=== PATIENT | male | born 1990 | race Caucasian/White ===

== ENCOUNTER 2019-09-04 07:52 | Inpatient (IN) ==
[2019-09-04] MEDS ORDERED: NS 1,000 ML IV ONE ×3 (08:03→10:35)
[2019-09-04] MEDS ORDERED: BOOSTRIX VACCINE IM ONE (08:03)
[2019-09-04] MEDS ORDERED: KEFZOL 2 GM/D5W 2 GM/50 ML IVPB IV ONE (08:03)
[2019-09-04] MEDS ORDERED: NS 1,000 ML ONE (08:11)
[2019-09-04 08:21] LABS: BASO# 0.03 X1000 (0.0-0.2); BASO% 0.1 % (0.0-0.8); EOS# 0.09 X1000 (0.0-0.7); EOS% 0.3 % (0.0-10.0); HEMATOCRIT 42.6 % (42.0-52.0); HEMOGLOBIN 14.5 g/dL (14.0-18.0); IMM GRAN# 0.24 X1000 (0.0-0.04); IMM GRAN% 0.8 % (0.0-0.5); LYMPH# 4.42 X1000 (1.2-3.4); MCH 31.9 PG (27-31); MCV 93.6 FL (81-99); MONO# 1.78 X1000 (0.11-0.59); MPV 9.3 FL (7.4-10.4); NEUT% 77.8 % (42.2-75.2); PLT 304 X1000 (130-400); RBC 4.55 XMIL (4.7-6.1); RDW 12.3 % (11.5-14.5); WBC 29.56 X1000 (4.8-10.8)
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
[2019-09-04 08:41] LABS: AGAP 20; ALB/GLOB RATIO 1.7; ALBUMIN 4.3 g/dL (3.5-5.0); ALKALINE PHOSPHATASE 78 U/L (32-122); BUN 9 mg/dL (8-22); CALCIUM 8.1 mg/dL (8.8-10.2); CHLORIDE 111 mmol/L (98-107); COSMO 296; CREATININE 1.8 mg/dL (0.7-1.2); GLUCOSE 152 mg/dL (70-104); GOT 41 U/L (10-34); GPT 40 U/L (10-44); POTASSIUM 3.9 mmol/L (3.5-5.1); SODIUM 148 mmol/L (136-145); TCO2 17 mmol/L (25-35); TOTAL BILIRUBIN 0.15 mg/dL (0.20-1.00); TOTAL PROTEIN 6.8 g/dL (6.3-8.3)
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
[2019-09-04 09:27] LABS: FREE T4 0.98 ng/dL (0.93-1.70); TSH 2.06 uIUmL (0.27-4.20)
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
[2019-09-04] MEDS ORDERED: MORPHINE IV ONE (10:14)
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
[2019-09-04 12:06] LABS: HEMATOCRIT 32.1 % (42.0-52.0); HEMOGLOBIN 10.7 g/dL (14.0-18.0)
--- NOTE | 2019-09-04 12:08 | ED EKG INTERP ---
This chart was entered by Elaine Sutton Scribe, acting as scribe for Vivek Rodriguez MD. EKG Interpretation - EKG Time of EKG reading by physician:: 11:50 EKG Read and Signed by:: Vivek Rodriguez EKG Interpretation (*Must complete 3 of following elements*): Normal Rate: 97 Rhythm: nsr [place]: normal QRS: normal OK Interval: normal ST Wave: normal Attestation - Physician/ DANE Attestation Patient care was provided by Advanced Practice Provider:: No The physician spent face to face time with patient:: Yes Advanced Practice Provider documentation review:: Supervising physician onsite and consulted in the evaluation and care of this patient. The physician did have a face to face encounter with the patient. This chart was documented by the indicated scribe, (Elaine Sutton Scribe) and accurately reflects the services I performed and decisions made by me, Vivek Rodriguez MD, as attested by the provider's signature.
[2019-09-04] MEDS ORDERED: ZOFRAN IV PRN (13:26)
[2019-09-04] MEDS ORDERED: ATIVAN IV PRN (13:26)
[2019-09-04] MEDS ORDERED: SODIUM CHLORIDE 0.9% INJ SCH (13:26)
[2019-09-04] MEDS ORDERED: BENTYL PO PRN (13:26)
[2019-09-04 13:50] LABS: ALLEN TEST YES; BE -7.3 mmoll (-3.0-3.0); BLOOD TYPE ARTERIAL; HCO3-(ACT) 19.2 mmoll (20.0-26.0); METHB 0.8 % (0.0-1.5); O2(CT) 15.1 mL/dL (15.0-23.0); O2HB 96.1 % (95.0-99.0); PCO2(98.6) 26 mmHg (35-45); PO2(98.6) 97 mmHg (60-100); SAMPLE BLOOD; SAO2 98.4 % (95.0-100.0); THB 11.1 g/dL (11.5-17.4)
[2019-09-04 13:51] LABS: MODALITY CANNULA
[2019-09-04] MEDS: PROTONIX IV SCH (13:53)
[2019-09-04] MEDS: NS 1,000 ML IV SCH ×2 (13:53→20:17)
[2019-09-04 13:58] LABS: HEMOGLOBIN A1C 4.6 % (4.8-6.0)
[2019-09-04] MEDS ORDERED: M.V.I.-12 10 ML, FOLIC ACID 1 MG, MAGNESIUM SULFATE 1 GM, THIAMINE 100 MG in NS 1,000 ML IV ONE (14:00)
--- NOTE | 2019-09-04 14:08 | EKG Report ---
Test Performed on : 09/04/2019 11:50:17 AM Test Reason : ED. No order in [place] Blood Pressure : / mmHG Vent. Rate : 097 BPM Atrial Rate : 097 BPM P-R Int : 150 ms QRS Dur : 074 ms QT Int : 328 ms P-R-T Axes : 049 051 034 degrees QTc Int : 416 ms Normal sinus rhythm. Normal ECG When compared with ECG of 04-SEP-2019 08:02, (Unconfirmed) No significant change was found Unconfirmed Result
[2019-09-04] MEDS ORDERED: OFIRMEV 1000 MG/ISOTONIC SOLN 1,000 MG/100 ML BOTTLE IV PRN (14:11)
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
[2019-09-04] MEDS: LIBRIUM PO SCH ×2 (15:30→20:13)
[2019-09-04 17:23] LABS: HEMATOCRIT 33.5 % (42.0-52.0); HEMOGLOBIN 11.1 g/dL (14.0-18.0)
[2019-09-04 17:24] LABS: UR AMPHETAMINES QUAL NONE DETECTED (NONE DETECT); UR BARBITUATES QUAL NONE DETECTED (NONE DETECT); UR BENZODIAZEPIN QUAL NONE DETECTED (NONE DETECT); UR CANNABINOIDS QUAL NONE DETECTED (NONE DETECT); UR COCAINE QUAL NONE DETECTED (NONE DETECT); UR METHADONE QUAL NONE DETECTED (NONE DETECT); UR OPIATES QUAL PRESUMPTIVE POSITIVE (NONE DETECT); UR OXYCODONE QUAL NONE DETECTED (NONE DETECT); UR PCP QUAL NONE DETECTED (NONE DETECT)
[2019-09-04 17:37] LABS: URINE SOURCE CLEAN CATCH
[2019-09-04 17:42] LABS: BILIRUBIN URINE NEGATIVE (NEGATIVE); BLOOD URINE SMALL (NEGATIVE); CLARITY CLEAR (CLEAR); COLOR YELLOW; GLUCOSE URINE NEGATIVE (NEGATIVE); KETONE URINE NEGATIVE (NEGATIVE); LEUKOCYTES URINE NEGATIVE (NEGATIVE); NITRITE URINE NEGATIVE (NEGATIVE); PROTEIN URINE NEGATIVE (NEGATIVE); SP GRAVITY URINE 1.015; UROBILINOGEN URINE 0.2 EU/dL (0.2-1.0)
[2019-09-04 18:06] LABS: URINE BACTERIA NEGATIVE /HFP; URINE CAST GRANULAR PRESENT /LPF; URINE EPITHELIAL CELLS <10 /HPF (<10); URINE RBC <10 /HPF (<10); URINE WBC <10 /HPF (<10); URINE YEAST NONE SEEN /HPF
[2019-09-04] MEDS: MORPHINE IV PRN (20:13)
[2019-09-04 23:45] LABS: HEMATOCRIT 27.9 % (42.0-52.0); HEMOGLOBIN 9.5 g/dL (14.0-18.0)
[2019-09-05 00:57] LABS: BASO# 0.01 X1000 (0.0-0.2); BASO% 0.1 % (0.0-0.8); EOS# 0.03 X1000 (0.0-0.7); EOS% 0.3 % (0.0-10.0); HEMATOCRIT 28.5 % (42.0-52.0); HEMOGLOBIN 9.7 g/dL (14.0-18.0); IMM GRAN# 0.03 X1000 (0.0-0.04); IMM GRAN% 0.3 % (0.0-0.5); LYMPH# 2.65 X1000 (1.2-3.4); LYMPH% 28.1 % (20.5-51.1); MCH 31.8 PG (27-31); MCV 93.4 FL (81-99); MONO% 12.7 % (1.7-9.3); MPV 10.1 FL (7.4-10.4); NEUT# 5.52 X1000 (1.4-6.5); NEUT% 58.5 % (42.2-75.2); PLT 190 X1000 (130-400); RBC 3.05 XMIL (4.7-6.1); RDW 11.7 % (11.5-14.5); WBC 9.44 X1000 (4.8-10.8)
[2019-09-05 01:06] LABS: INR 1.04; PROTIME 13.7 Seconds (11.0-16.0)
[2019-09-05 01:17] LABS: AGAP 13; ALB/GLOB RATIO 2.2; ALBUMIN 3.9 g/dL (3.5-5.0); ALKALINE PHOSPHATASE 58 U/L (32-122); BUN 10 mg/dL (8-22); CALCIUM 7.7 mg/dL (8.8-10.2); CHLORIDE 106 mmol/L (98-107); COSMO 273; CREATININE 0.9 mg/dL (0.7-1.2); ESTIMATED GFR > 60; GLUCOSE 103 mg/dL (70-104); GOT 53 U/L (10-34); GPT 34 U/L (10-44); POTASSIUM 4.5 mmol/L (3.5-5.1); SODIUM 137 mmol/L (136-145); TCO2 18 mmol/L (25-35); TOTAL BILIRUBIN 0.43 mg/dL (0.20-1.00); TOTAL PROTEIN 5.7 g/dL (6.3-8.3)
[2019-09-05] MEDS: MORPHINE IV PRN ×3 (01:27→20:18)
[2019-09-05] MEDS: PROTONIX IV SCH ×2 (01:27→14:04)
[2019-09-05] MEDS: LIBRIUM PO SCH ×4 (02:12→22:46)
[2019-09-05] MEDS: NS 1,000 ML IV SCH ×3 (05:48→22:46)
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
[2019-09-05 08:43] LABS: EOS# 0.04 X1000 (0.0-0.7); EOS% 0.5 % (0.0-10.0); HEMATOCRIT 26.2 % (42.0-52.0); HEMOGLOBIN 8.6 g/dL (14.0-18.0); LYMPH% 32.3 % (20.5-51.1); MCH 31.6 PG (27-31); MCHC 32.8 g/dL (33-37); MCV 96.3 FL (81-99); MONO# 0.81 X1000 (0.11-0.59); MONO% 10.5 % (1.7-9.3); MPV 9.7 FL (7.4-10.4); NEUT# 4.38 X1000 (1.4-6.5); NEUT% 56.7 % (42.2-75.2); PLT 173 X1000 (130-400); RBC 2.72 XMIL (4.7-6.1); RDW 11.8 % (11.5-14.5); WBC 7.73 X1000 (4.8-10.8)
[2019-09-05] MEDS: ROCEPHIN 1 GM in NS 50 ML IV SCH (08:45)
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
[2019-09-05 09:54] LABS: AGAP 7; ALB/GLOB RATIO 1.7; ALBUMIN 3.3 g/dL (3.5-5.0); ALKALINE PHOSPHATASE 52 U/L (32-122); BUN 9 mg/dL (8-22); CALCIUM 7.7 mg/dL (8.8-10.2); CHLORIDE 108 mmol/L (98-107); COSMO 269; CREATININE 0.8 mg/dL (0.7-1.2); ESTIMATED GFR > 60; GLUCOSE 95 mg/dL (70-104); GOT 41 U/L (10-34); GPT 27 U/L (10-44); POTASSIUM 4.1 mmol/L (3.5-5.1); SODIUM 135 mmol/L (136-145); TCO2 20 mmol/L (25-35); TOTAL BILIRUBIN 0.48 mg/dL (0.20-1.00); TOTAL PROTEIN 5.2 g/dL (6.3-8.3)
[2019-09-05] MEDS ORDERED: XYLOCAINE-MPF 2% ONE (12:11)
[2019-09-05] MEDS ORDERED: ROBINUL ONE (12:11)
[2019-09-05] MEDS ORDERED: DIPRIVAN 1% ONE (12:12)
[2019-09-05] MEDS ORDERED: FENTANYL ONE (12:12)
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
[2019-09-05 14:03] LABS: HEMATOCRIT 24.6 % (42.0-52.0); HEMOGLOBIN 8.3 g/dL (14.0-18.0)
--- NOTE | 2019-09-05 14:22 | OPERATIVE NOTE ---
PROCEDURE DATE: 09/05/2019 PROCEDURE: Esophagogastroduodenoscopy. PREOPERATIVE DIAGNOSIS: Hematemesis. POSTOPERATIVE DIAGNOSIS: Small antral erosion. No evidence of any bleeding. DESCRIPTION OF PROCEDURE: After informed consent and adequate intravenous sedation by Anesthesia, the scope was introduced in the esophagus, which was normal. Cardia, fundus, body, antrum, normal except for a small erosion with no signs of any bleeding. Duodenum is normal. The scope was withdrawn. The patient tolerated the procedure without any immediate complications. cc: Forrest Pettit MD
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
[2019-09-06] MEDS: PROTONIX IV SCH ×2 (02:19→13:48)
[2019-09-06] MEDS: NS 1,000 ML IV SCH ×4 (05:05→21:55)
[2019-09-06] MEDS: MORPHINE IV PRN ×4 (05:42→21:56)
[2019-09-06] MEDS: LIBRIUM PO SCH ×3 (06:11→22:00)
[2019-09-06 06:23] LABS: BASO# 0.01 X1000 (0.0-0.2); BASO% 0.2 % (0.0-0.8); EOS# 0.11 X1000 (0.0-0.7); EOS% 1.8 % (0.0-10.0); HEMATOCRIT 23.5 % (42.0-52.0); HEMOGLOBIN 7.9 g/dL (14.0-18.0); LYMPH# 1.59 X1000 (1.2-3.4); LYMPH% 25.9 % (20.5-51.1); MCH 31.5 PG (27-31); MCHC 33.6 g/dL (33-37); MCV 93.6 FL (81-99); MONO# 0.57 X1000 (0.11-0.59); MONO% 9.3 % (1.7-9.3); MPV 10.2 FL (7.4-10.4); NEUT# 3.87 X1000 (1.4-6.5); NEUT% 62.8 % (42.2-75.2); PLT 164 X1000 (130-400); RBC 2.51 XMIL (4.7-6.1); RDW 11.2 % (11.5-14.5); WBC 6.15 X1000 (4.8-10.8)
[2019-09-06 06:50] LABS: AGAP 9; ALB/GLOB RATIO 1.4; ALBUMIN 3.2 g/dL (3.5-5.0); ALKALINE PHOSPHATASE 52 U/L (32-122); BUN 5 mg/dL (8-22); CALCIUM 7.9 mg/dL (8.8-10.2); CHLORIDE 107 mmol/L (98-107); COSMO 272; CREATININE 0.8 mg/dL (0.7-1.2); ESTIMATED GFR > 60; GLUCOSE 88 mg/dL (70-104); GOT 40 U/L (10-34); GPT 27 U/L (10-44); POTASSIUM 3.7 mmol/L (3.5-5.1); SODIUM 138 mmol/L (136-145); TCO2 22 mmol/L (25-35); TOTAL BILIRUBIN 0.34 mg/dL (0.20-1.00); TOTAL PROTEIN 5.5 g/dL (6.3-8.3)
[2019-09-06] MEDS: ROCEPHIN 1 GM in NS 50 ML IV SCH (08:09)
[2019-09-06] MEDS: LEVAQUIN PO SCH (09:58)
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
[2019-09-06] MEDS: ROBAXIN PO PRN (18:31)
[2019-09-07] MEDS: PROTONIX IV SCH (00:33)
[2019-09-07 05:58] LABS: BASO# 0.01 X1000 (0.0-0.2); BASO% 0.2 % (0.0-0.8); EOS# 0.17 X1000 (0.0-0.7); EOS% 3.2 % (0.0-10.0); HEMATOCRIT 23.3 % (42.0-52.0); HEMOGLOBIN 7.7 g/dL (14.0-18.0); LYMPH# 1.32 X1000 (1.2-3.4); LYMPH% 24.6 % (20.5-51.1); MCH 31.2 PG (27-31); MCV 94.3 FL (81-99); MONO# 0.58 X1000 (0.11-0.59); MONO% 10.8 % (1.7-9.3); MPV 9.6 FL (7.4-10.4); NEUT# 3.28 X1000 (1.4-6.5); NEUT% 61.2 % (42.2-75.2); PLT 178 X1000 (130-400); RBC 2.47 XMIL (4.7-6.1); RDW 11.5 % (11.5-14.5); WBC 5.36 X1000 (4.8-10.8)
[2019-09-07] MEDS: NS 1,000 ML IV SCH ×2 (06:27→06:33)
[2019-09-07] MEDS: LIBRIUM PO SCH (06:28)
[2019-09-07] MEDS: ROBAXIN PO PRN ×2 (06:33→16:35)
[2019-09-07 06:38] LABS: AGAP 11; ALB/GLOB RATIO 1.3; ALBUMIN 3.3 g/dL (3.5-5.0); ALKALINE PHOSPHATASE 54 U/L (32-122); BUN 3 mg/dL (8-22); CALCIUM 7.9 mg/dL (8.8-10.2); CHLORIDE 106 mmol/L (98-107); COSMO 276; CREATININE 0.7 mg/dL (0.7-1.2); ESTIMATED GFR > 60; GLUCOSE 102 mg/dL (70-104); GOT 29 U/L (10-34); GPT 23 U/L (10-44); POTASSIUM 3.9 mmol/L (3.5-5.1); SODIUM 140 mmol/L (136-145); TCO2 23 mmol/L (25-35); TOTAL BILIRUBIN 0.27 mg/dL (0.20-1.00); TOTAL PROTEIN 5.8 g/dL (6.3-8.3)
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
[2019-09-07] MEDS: MORPHINE IV PRN (09:36)
[2019-09-07] MEDS: ROCEPHIN 1 GM in NS 50 ML IV SCH (09:37)
[2019-09-07] MEDS: LEVAQUIN PO SCH (09:38)
[2019-09-07] MEDS ORDERED: TYLENOL PO PRN (10:41)
[2019-09-07] MEDS: NORCO-7.5 PO PRN ×3 (11:30→22:50)
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
[2019-09-07] MEDS: HYDROCORTISONE 0.5% CREAM TOP SCH (14:19)
[2019-09-08] MEDS: HYDROCORTISONE 0.5% CREAM TOP SCH (05:22)
[2019-09-08] MEDS: NORCO-7.5 PO PRN ×3 (06:52→16:57)
[2019-09-08] MEDS: LEVAQUIN PO SCH (09:47)
[2019-09-08] MEDS: PROTONIX PO SCH (09:47)
[2019-09-08] MEDS: ROBAXIN PO PRN ×2 (09:47→19:26)
[2019-09-08 09:55] LABS: BASO# 0.02 X1000 (0.0-0.2); BASO% 0.4 % (0.0-0.8); EOS# 0.25 X1000 (0.0-0.7); EOS% 4.7 % (0.0-10.0); HEMATOCRIT 26.1 % (42.0-52.0); HEMOGLOBIN 8.7 g/dL (14.0-18.0); IMM GRAN# 0.02 X1000 (0.0-0.04); IMM GRAN% 0.4 % (0.0-0.5); LYMPH# 1.36 X1000 (1.2-3.4); LYMPH% 25.8 % (20.5-51.1); MCH 31.1 PG (27-31); MCHC 33.3 g/dL (33-37); MCV 93.2 FL (81-99); MONO# 0.51 X1000 (0.11-0.59); MONO% 9.7 % (1.7-9.3); MPV 9.5 FL (7.4-10.4); NEUT# 3.11 X1000 (1.4-6.5); PLT 242 X1000 (130-400); RDW 11.8 % (11.5-14.5); WBC 5.27 X1000 (4.8-10.8)
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
[2019-09-08 10:26] LABS: AGAP 12; ALB/GLOB RATIO 1.4; ALBUMIN 3.9 g/dL (3.5-5.0); ALKALINE PHOSPHATASE 60 U/L (32-122); BUN 4 mg/dL (8-22); CALCIUM 9.1 mg/dL (8.8-10.2); CHLORIDE 104 mmol/L (98-107); COSMO 280; CREATININE 0.9 mg/dL (0.7-1.2); ESTIMATED GFR > 60; GLUCOSE 96 mg/dL (70-104); GOT 34 U/L (10-34); GPT 27 U/L (10-44); POTASSIUM 3.6 mmol/L (3.5-5.1); SODIUM 142 mmol/L (136-145); TCO2 26 mmol/L (25-35); TOTAL BILIRUBIN 0.36 mg/dL (0.20-1.00); TOTAL PROTEIN 6.6 g/dL (6.3-8.3)
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
[2019-09-09] MEDS: NORCO-7.5 PO PRN ×4 (00:09→18:31)
[2019-09-09] MEDS: PROTONIX PO SCH (06:41)
[2019-09-09 07:21] LABS: BASO# 0.02 X1000 (0.0-0.2); BASO% 0.5 % (0.0-0.8); EOS# 0.25 X1000 (0.0-0.7); EOS% 6.1 % (0.0-10.0); HEMATOCRIT 25.7 % (42.0-52.0); HEMOGLOBIN 8.6 g/dL (14.0-18.0); IMM GRAN# 0.03 X1000 (0.0-0.04); IMM GRAN% 0.7 % (0.0-0.5); LYMPH# 1.18 X1000 (1.2-3.4); LYMPH% 28.6 % (20.5-51.1); MCH 31.9 PG (27-31); MCHC 33.5 g/dL (33-37); MCV 95.2 FL (81-99); MONO# 0.38 X1000 (0.11-0.59); MONO% 9.2 % (1.7-9.3); MPV 9.7 FL (7.4-10.4); NEUT# 2.26 X1000 (1.4-6.5); NEUT% 54.9 % (42.2-75.2); PLT 278 X1000 (130-400); RDW 12.3 % (11.5-14.5); WBC 4.12 X1000 (4.8-10.8)
[2019-09-09 07:50] LABS: AGAP 9; BUN 6 mg/dL (8-22); CALCIUM 8.8 mg/dL (8.8-10.2); CHLORIDE 106 mmol/L (98-107); COSMO 276; CREATININE 0.8 mg/dL (0.7-1.2); ESTIMATED GFR > 60; GLUCOSE 84 mg/dL (70-104); POTASSIUM 4.5 mmol/L (3.5-5.1); SODIUM 140 mmol/L (136-145); TCO2 25 mmol/L (25-35)
[2019-09-09] MEDS: LEVAQUIN PO SCH (09:20)
[2019-09-09] MEDS: ROBAXIN PO PRN ×3 (09:20→21:27)
[2019-09-09] MEDS: HYDROCORTISONE 0.5% CREAM TOP SCH (09:22)
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
[2019-09-10] MEDS: NORCO-7.5 PO PRN ×5 (00:24→22:33)
[2019-09-10] MEDS: PROTONIX PO SCH (06:29)
[2019-09-10] MEDS: ROBAXIN PO PRN ×2 (06:29→16:32)
[2019-09-10 07:16] LABS: AGAP 10; BUN 6 mg/dL (8-22); CALCIUM 9.2 mg/dL (8.8-10.2); CHLORIDE 104 mmol/L (98-107); COSMO 275; CREATININE 0.8 mg/dL (0.7-1.2); ESTIMATED GFR > 60; GLUCOSE 87 mg/dL (70-104); POTASSIUM 4.1 mmol/L (3.5-5.1); SODIUM 139 mmol/L (136-145); TCO2 25 mmol/L (25-35)
[2019-09-10 07:21] LABS: BASO# 0.03 X1000 (0.0-0.2); BASO% 0.6 % (0.0-0.8); EOS# 0.29 X1000 (0.0-0.7); EOS% 5.4 % (0.0-10.0); HEMATOCRIT 25.5 % (42.0-52.0); HEMOGLOBIN 8.4 g/dL (14.0-18.0); IMM GRAN# 0.05 X1000 (0.0-0.04); IMM GRAN% 0.9 % (0.0-0.5); LYMPH# 1.52 X1000 (1.2-3.4); MCH 31.5 PG (27-31); MCHC 32.9 g/dL (33-37); MCV 95.5 FL (81-99); MONO# 0.59 X1000 (0.11-0.59); MONO% 10.9 % (1.7-9.3); MPV 9.4 FL (7.4-10.4); NEUT# 2.94 X1000 (1.4-6.5); NEUT% 54.2 % (42.2-75.2); PLT 315 X1000 (130-400); RBC 2.67 XMIL (4.7-6.1); RDW 12.6 % (11.5-14.5); WBC 5.42 X1000 (4.8-10.8)
[2019-09-10] MEDS: LEVAQUIN PO SCH (08:01)
[2019-09-10] MEDS: HYDROCORTISONE 0.5% CREAM TOP SCH ×3 (08:09→21:11)
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
[2019-09-11] MEDS: ROBAXIN PO PRN ×3 (02:21→15:47)
[2019-09-11] MEDS: NORCO-7.5 PO PRN ×3 (07:00→17:53)
[2019-09-11] MEDS: PROTONIX PO SCH (07:00)
[2019-09-11 07:36] LABS: BASO# 0.02 X1000 (0.0-0.2); BASO% 0.3 % (0.0-0.8); EOS# 0.27 X1000 (0.0-0.7); EOS% 4.5 % (0.0-10.0); HEMATOCRIT 27.2 % (42.0-52.0); HEMOGLOBIN 8.8 g/dL (14.0-18.0); IMM GRAN# 0.05 X1000 (0.0-0.04); IMM GRAN% 0.8 % (0.0-0.5); LYMPH# 1.56 X1000 (1.2-3.4); LYMPH% 25.8 % (20.5-51.1); MCH 31.1 PG (27-31); MCHC 32.4 g/dL (33-37); MCV 96.1 FL (81-99); MONO# 0.66 X1000 (0.11-0.59); MONO% 10.9 % (1.7-9.3); MPV 9.2 FL (7.4-10.4); NEUT# 3.48 X1000 (1.4-6.5); NEUT% 57.7 % (42.2-75.2); PLT 370 X1000 (130-400); RBC 2.83 XMIL (4.7-6.1); WBC 6.04 X1000 (4.8-10.8)
[2019-09-11 08:01] LABS: AGAP 11; BUN 11 mg/dL (8-22); CALCIUM 8.7 mg/dL (8.8-10.2); CHLORIDE 104 mmol/L (98-107); COSMO 276; CREATININE 0.9 mg/dL (0.7-1.2); ESTIMATED GFR > 60; GLUCOSE 81 mg/dL (70-104); POTASSIUM 4.7 mmol/L (3.5-5.1); SODIUM 139 mmol/L (136-145); TCO2 24 mmol/L (25-35)
[2019-09-11] MEDS: LEVAQUIN PO SCH (08:52)
[2019-09-11] MEDS: HYDROCORTISONE 0.5% CREAM TOP SCH (08:52)
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
[2019-09-11 16:03] VITALS: BP 120/79
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
== END 2019-09-11 18:21 | DRG 604 ==
LOC: EDBD → SUPCPDRO → ED 07:52 → ICU 12:19 → SUATTDRO 12:19 → 4N 09-06 18:07
PROVIDERS: ATTEND Internal Medicine